=== PATIENT | male | born 1965 | race Caucasian/White ===

== ENCOUNTER 2024-01-17 18:47 | Emergency (ER) | payer OTHER, SELFPAY ==
[2024-01-17 18:54] VITALS: BP 147/88; PULSE 84; TEMP 36.7; O2SAT 100; BMI 28.0
--- NOTE | 2024-01-17 19:31 | ED.SKABFB1 ---
HPI - Skin/Abscess/Foreign Bdy General Chief complaint: Skin/Abscess/Foreign Body Stated complaint: RASH Time Seen by Provider: 01/17/24 19:20 Source: patient Mode of arrival: walk-in History of Present Illness HPI narrative: rash on his arms for 2 weeks. States it is spreading. No associated symptoms. No pain, pruritics. No swelling. Denies bleeding from his gums or blood in his stools. Denies starting new medications Related Data Allergies Allergy/AdvReac Type Severity Reaction Status Date / Time Penicillins Allergy Severe Hives Verified 01/17/24 19:00 Review of Systems ROS Status of ROS 10 or more systems reviewed and unremarkable except as noted in history and below Exam Constitutional Vital Signs, click to edit/add: Last Vital Signs Temp 98.0 F 01/17/24 18:54 Pulse 84 01/17/24 18:54 Resp 16 01/17/24 18:54 BP 147/88 H 01/17/24 18:54 Pulse Ox 100 01/17/24 18:54 O2 Del Method Room Air 01/17/24 18:54 Common normals: no apparent distress, average body habitus, oriented x3, no limitations, healthy appearing, alert and well nourished [facility] Common normals: normocephalic and head/scalp atraumatic Eye Common normals: PERRL, EOMs intact bilaterally and conjunctivae normal Respiratory Common normals: normal respiratory effort, no retractions, no use of accessory muscles and clear to auscultation bilaterally Cardio Common normals: regular rate, regular rhythm, S1 normal heart sound and S2 normal heart sound GI Common normals: Normal to inspection, nondistended, normoactive bowel sounds present and soft to palpation Extremity Common normals: full ROM and no joint enlargement Extremity image (front): 1. petechia like macula brown erythematous rash cluster 2-3mm in size. No tenderness 2. same rash as on the arms Neuro Common normals: oriented x3, CN's II-XII intact bilaterally, moves all extremities, no focal motor deficits and no sensory deficits noted Psych Appearance: grossly normal Course Vital Signs Vital signs: Vital Signs Temperature 98.0 F 01/17/24 18:54 Pulse Rate 84 01/17/24 18:54 Respiratory Rate 16 01/17/24 18:54 Blood Pressure 147/88 H 01/17/24 18:54 Pulse Oximetry 100 01/17/24 18:54 Oxygen Delivery Method Room Air 01/17/24 18:54 Temperature 98.0 F 01/17/24 18:54 Pulse Rate 84 01/17/24 18:54 Respiratory Rate 16 01/17/24 18:54 Blood Pressure 147/88 H 01/17/24 18:54 Pulse Oximetry 100 01/17/24 18:54 Oxygen Delivery Method Room Air 01/17/24 18:54 MDM - Skin/Abscess/Foreign Bdy MDM Narrative Medical decision making narrative: patient presents with atypical rash on his extremities. Not pruritic or painful. Labs unremarkable except hyponatremia that will require follow up. Will treat rash with course of prednisone to see if this helps. Patient also advised to have his sodium level rechecked in the next 2-3 days and to follow up with his doctor for a recheck Lab Data Labs: Lab Results 01/17/24 Range/Units 19:50 WBC 9.7 (4.0-11.0) 10^3/uL RBC 5.38 (4.70-6.10) 10^6/uL Hgb 15.9 (14.0-18.0) g/dL Hct 47.3 (42.0-54.0) % MCV 87.9 (80.0-94.0) fL MCH 29.6 (25.9-34.0) pg MCHC 33.6 (29.9-35.2) g/dL RDW 15.2 H (11.0-15.0) % Plt Count 343 (150-450) 10^3/uL MPV 8.4 L (9.5-13.5) fL Neut % (Auto) 65.8 (43.0-75.0) % Lymph % (Auto) 25.2 (20.5-60.0) % Sharp % (Auto) 6.6 (1.7-12.0) % Eos % (Auto) 1.1 (0.9-7.0) % Baso % (Auto) 0.8 (0.2-2.0) % Neut # (Auto) 6.4 (1.4-6.5) 10^3/uL Lymph # (Auto) 2.4 (1.2-3.8) 10^3/uL Sharp # (Auto) 0.6 (0.3-0.8) 10^3/uL Eos # (Auto) 0.1 (0.0-0.7) 10^3/uL Baso # (Auto) 0.1 (0.0-0.1) 10^3/uL Abs Immat Gran (auto) 0.05 H (0.00-0.03) 10^3/uL Imm/Tot Granulo (auto) 0.5 (0.0-0.5) % PT 10.3 (9.0-11.6) sec INR 0.97 APTT 28.5 (22.3-36.2) sec Sodium 125 L (136-145) mmol/L Potassium 4.3 (3.5-5.1) mmol/L Chloride 90 L (98-107) mmol/L Carbon Dioxide 25.0 (21.0-32.0) mmol/L Anion Gap 14.3 BUN 9.0 (7.0-18.0) mg/dL Creatinine 0.93 (0.70-1.30) mg/dL Est GFR ( Amer) >60 (>=60) Est GFR (Non-Af Amer) >60 (>=60) BUN/Creatinine Ratio 9.7 Glucose 98 (74-106) mg/dL Calcium 8.8 (8.5-10.1) mg/dL Total Bilirubin 0.4 (0.2-1.0) mg/dL AST 18 (15-37) U/L ALT 34 (16-63) U/L Alkaline Phosphatase 154 H (46-116) U/L Total Protein 8.0 (6.4-8.2) g/dL Albumin 3.3 L (3.4-5.0) g/dL Globulin 4.7 g/dL Albumin/Globulin Ratio 0.7 Discharge Plan Discharge Stand Alone Forms: Portal Instructions Chief Complaint: Skin/Abscess/Foreign Body Clinical Impression: Rash, Hyponatremia Patient Disposition: Home, Self-Care Print Language: Romanian Instructions: Hyponatremia (ED), Acute Rash (ED) Additional Instructions: follow up with your family doctor for recheck in next 2-3 days and have your blood work rechecked as discussed Referrals: [facility] [Primary Care Provider] - 1 week
--- NOTE | 2024-01-17 19:54 | PC.NURSE ---
bilat arms rash appears to look like a large petechia, pt reports using Benadryl cream at home improves this. Has an upcoming appt with PCP this month
[2024-01-17 20:08] LABS: Basophils Absolute Auto 0.1 10^3/uL (0.0-0.1); Basophils Percent Auto 0.8 % (0.2-2.0); Eosinophils Absolute Auto 0.1 10^3/uL (0.0-0.7); Eosinophils Percent Auto 1.1 % (0.9-7.0); Hematocrit 47.3 % (42.0-54.0); Hemoglobin 15.9 g/dL (14.0-18.0); Immature Granulocytes Abs Auto 0.05 10^3/uL (0.00-0.03); Immature Granulocytes Pct Auto 0.5 % (0.0-0.5); Lymphocytes Absolute Auto 2.4 10^3/uL (1.2-3.8); Lymphocytes Percent Auto 25.2 % (20.5-60.0); Mean Corpuscular HGB Conc 33.6 g/dL (29.9-35.2); Mean Corpuscular Hemoglobin 29.6 pg (25.9-34.0); Mean Corpuscular Volume 87.9 fL (80.0-94.0); Mean Platelet Volume 8.4 fL (9.5-13.5); Monocytes Absolute Auto 0.6 10^3/uL (0.3-0.8); Monocytes Percent Auto 6.6 % (1.7-12.0); Neutrophils Absolute Auto 6.4 10^3/uL (1.4-6.5); Neutrophils Percent Auto 65.8 % (43.0-75.0); Platelet Count 343 10^3/uL (150-450); Red Blood Count 5.38 10^6/uL (4.70-6.10); Red Cell Distribution Width 15.2 % (11.0-15.0); White Blood Count 9.7 10^3/uL (4.0-11.0)
[2024-01-17 20:23] LABS: INR 0.97; Partial Thromboplastin Time 28.5 sec (22.3-36.2); Prothrombin Time 10.3 sec (9.0-11.6)
[2024-01-17 20:40] LABS: Alanine Aminotransferase 34 U/L (16-63); Albumin Globulin Ratio 0.7; Albumin Level 3.3 g/dL (3.4-5.0); Alkaline Phosphatase 154 U/L (46-116); Anion Gap 14.3; Aspartate Amino Transferase 18 U/L (15-37); BUN Creatinine Ratio 9.7; Bilirubin Total 0.4 mg/dL (0.2-1.0); Calcium 8.8 mg/dL (8.5-10.1); Chloride 90 mmol/L (98-107); Estimated GFR (African America >60 (>=60); Estimated GFR (Non-African Ame >60 (>=60); Globulin 4.7 g/dL; Glucose 98 mg/dL (74-106); Potassium 4.3 mmol/L (3.5-5.1)
[2024-01-17 20:42] LABS: Sodium 125 mmol/L (136-145)
[2024-01-17] MEDS: PREDNISONE 20 MG TABLET 40 MG PO (21:25)
[2024-01-17 21:31] VITALS: BP 130/70; PULSE 75; O2SAT 96
== END 2024-01-17 21:34 | disposition home or self-care (01) ==
PROVIDERS: Emergency Provider Internal Medicine; PCP Family Medicine
DX: E87.1 Hypo-osmolality and hyponatremia (principal); R21 Rash and other nonspecific skin eruption
CPT/HCPCS: 36415; 80053; 85025; 85610; 85730; 99283; J7512